=== PATIENT | female | born 1950 | race Caucasian/White ===

== ENCOUNTER → 2020-01-06 | Outpatient (CLI) | payer OTHER ==
[~2020-01-06] MED LIST: ALLO100 PO; ASPI325 PO; ATOR20 PO; CARV25 PO; DICL75ER PO; GLIP5 PO; IBU800 M1 PO; METF500C PO; MICROZIDE12.5 M1 PO; MULVITMIND PO; Percocet 5-3251 EACH PO; Vitamin D2000 UNIT PO
[2020-01-06 11:17] LABS: BASOPHILS ABSOLUTE AUTO 0.09 K/mm3 (0.00-0.23); BASOPHILS PERCENT AUTO 1 % (0-2); EOSINOPHILS ABSOLUTE AUTO 0.28 K/mm3 (0.00-0.68); EOSINOPHILS PERCENT AUTO 3 % (0-6); Hematocrit 41.7 % (33.0-51.0); Hemoglobin 12.8 g/dL (11.5-16.0); IMMATURE GRAN ABSOLUTE AUTO 0.04 K/mm3 (0.00-0.10); IMMATURE GRAN PERCENT AUTO 0 % (0-1); LYMPHOCYTES ABSOLUTE AUTO 1.36 K/mm3 (0.84-5.20); LYMPHOCYTES PERCENT AUTO 15 % (21-46); MONOCYTES ABSOLUTE AUTO 0.48 K/mm3 (0.16-1.47); MONOCYTES PERCENT AUTO 5 % (4-13); Mean Corpuscular HGB 26.4 pg (26.0-34.0); Mean Corpuscular HGB Conc 30.7 g/dL (31.5-36.5); Mean Corpuscular Volume 86 fL (80-100); Mean Platelet Volume 10.3 fL (9.1-12.4); NEUTROPHILS ABSOLUTE AUTO 6.94 K/mm3 (1.96-9.15); NEUTROPHILS PERCENT AUTO 76 % (41-73); Platelet Count 377 K/mm3 (150-400); RDW Coefficient Variation 14.8 % (11.7-14.2); RDW Standard Deviation 46.5 fL (35.1-46.3); Red Blood Cell Count 4.85 M/mm3 (3.80-5.20); White Blood Cell Count 9.19 K/mm3 (4.00-11.30)
[2020-01-06 11:28] LABS: Alanine Aminotransfer (ALT/SGP 14 U/L (12-78); Albumin, Blood 3.4 g/dL (3.4-5.0); Albumin/Globulin Ratio 0.7 (0.8-1.8); Alk Phos 177 U/L (50-136); Anion Gap 7 mmol/L (6-16); Aspartate Aminotrans (AST/SGOT 18 U/L (12-37); Bilirubin, Total 0.4 mg/dL (0.1-1.0); Blood Urea Nitrogen 16 mg/dL (8-24); Bun/Creatinine Ratio 27.7 (12.0-20.0); CO2, Blood 28 mmol/L (21-32); Calcium, Blood 8.9 mg/dL (8.5-10.1); Chloride, Blood 100 mmol/L (98-108); Creatinine, Blood 0.58 mg/dL (0.40-1.00); Globulin, Blood 5.2 g/dL (2.2-4.0); Glomerular Filtration Rate >60 (60-); Glucose, Blood 201 mg/dL (70-99); Potassium, Blood 3.5 mmol/L (3.5-5.5); Sodium, Blood 135 mmol/L (136-145); Total Protein, Blood 8.6 g/dL (6.4-8.2)
== END | disposition home or self-care (01) ==
LOC: LAB SHORT 11:03 → LAB 11:03
PROVIDERS: Physician Assistant
DX: R10.9 Unspecified abdominal pain (principal)
CPT/HCPCS: 80053; 83690; 85025

== ENCOUNTER 2020-01-08 17:48 | Emergency (ER) | payer OTHER ==
[~2020-01-08] VITALS: Ht 160 cm; Wt 117.9 kg
[~2020-01-08 17:48] MED LIST changes: -ALLO100 PO; -ATOR20 PO; -CARV25 PO; -DICL75ER PO; -GLIP5 PO; -IBU800 M1 PO; -METF500C PO; -MICROZIDE12.5 M1 PO; -Percocet 5-3251 EACH PO; -Vitamin D2000 UNIT PO
[2020-01-08] MEDS ORDERED: DICL75ER PO (18:09)
[2020-01-08] MEDS ORDERED: ALLO100 PO (18:10)
[2020-01-08] MEDS ORDERED: ATOR20 PO (18:10)
[2020-01-08] MEDS ORDERED: GLIP5 PO (18:10)
[2020-01-08] MEDS ORDERED: Vitamin D2000 UNIT PO (18:11)
[2020-01-08] MEDS ORDERED: CARV25 PO (18:11)
[2020-01-08] MEDS ORDERED: MICROZIDE12.5 M1 PO (18:12)
[2020-01-08] MEDS ORDERED: METF500C PO (18:12)
[2020-01-08 18:45] LABS: BASOPHILS ABSOLUTE AUTO 0.11 K/mm3 (0.00-0.23); BASOPHILS PERCENT AUTO 2 % (0-2); EOSINOPHILS ABSOLUTE AUTO 0.33 K/mm3 (0.00-0.68); EOSINOPHILS PERCENT AUTO 5 % (0-6); Hematocrit 41.8 % (33.0-51.0); Hemoglobin 12.9 g/dL (11.5-16.0); IMMATURE GRAN ABSOLUTE AUTO 0.02 K/mm3 (0.00-0.10); IMMATURE GRAN PERCENT AUTO 0 % (0-1); LYMPHOCYTES ABSOLUTE AUTO 1.64 K/mm3 (0.84-5.20); LYMPHOCYTES PERCENT AUTO 23 % (21-46); MONOCYTES PERCENT AUTO 6 % (4-13); Mean Corpuscular HGB 26.2 pg (26.0-34.0); Mean Corpuscular HGB Conc 30.9 g/dL (31.5-36.5); Mean Corpuscular Volume 85 fL (80-100); Mean Platelet Volume 9.8 fL (9.1-12.4); NEUTROPHILS ABSOLUTE AUTO 4.74 K/mm3 (1.96-9.15); NEUTROPHILS PERCENT AUTO 65 % (41-73); Platelet Count 417 K/mm3 (150-400); RDW Coefficient Variation 14.8 % (11.7-14.2); RDW Standard Deviation 45.6 fL (35.1-46.3); Red Blood Cell Count 4.93 M/mm3 (3.80-5.20); White Blood Cell Count 7.24 K/mm3 (4.00-11.30)
[2020-01-08 19:02] LABS: Alanine Aminotransfer (ALT/SGP 16 U/L (12-78); Albumin, Blood 3.4 g/dL (3.4-5.0); Albumin/Globulin Ratio 0.6 (0.8-1.8); Alk Phos 150 U/L (50-136); Anion Gap 7 mmol/L (6-16); Aspartate Aminotrans (AST/SGOT 22 U/L (12-37); Bilirubin, Total 0.3 mg/dL (0.1-1.0); Blood Urea Nitrogen 12 mg/dL (8-24); CO2, Blood 30 mmol/L (21-32); Calcium, Blood 9.2 mg/dL (8.5-10.1); Chloride, Blood 100 mmol/L (98-108); Creatinine, Blood 0.55 mg/dL (0.40-1.00); Globulin, Blood 5.4 g/dL (2.2-4.0); Glomerular Filtration Rate >60 (60-); Glucose, Blood 123 mg/dL (70-99); Potassium, Blood 3.4 mmol/L (3.5-5.5); Sodium, Blood 137 mmol/L (136-145); Total Protein, Blood 8.8 g/dL (6.4-8.2)
[2020-01-08 19:58] LABS: Source, Urine Clean Catch
[2020-01-08 20:07] LABS: Blood, Urine Neg (Neg); Glucose Qualitative, Urine Neg (Neg); Ketones, Urine Neg (Neg); Leukocyte Esterase, Urine Neg (Neg); Nitrite, Urine Neg (Neg); Protein, Urine Neg (Neg); Specific Gravity, Urine 1.015 (1.003-1.022); Urobilinogen, Urine NORM (Normal)
[2020-01-08 20:11] LABS: Bilirubin, Urine 1+ (Neg); Color, Urine Yellow (P-Yellow)
[2020-01-08 20:13] LABS: Amorphous Light (0-Heavy); Appearance, Urine Hazy (Clear); Bacteria Few /hpf; Red Blood Cells, Urine Not Seen /hpf (0-2); Squamous Epithelial Cells Many /hpf (Few); White Blood Cells, Urine Rare /hpf (0-5)
[2020-01-08] MEDS ORDERED: Percocet 5-3251 EACH PO (20:56)
[2020-01-08] MEDS ORDERED: IBU800 M1 PO (20:56)
== END 2020-01-08 21:07 | disposition home or self-care (01) ==
LOC: ER 17:48
PROVIDERS: Emergency Medicine
DX: R07.89 Other chest pain (principal); I10 Essential (primary) hypertension; Z88.1 Allergy status to other antibiotic agents; Z79.84 Long term (current) use of oral hypoglycemic drugs; Z79.899 Other long term (current) drug therapy
CPT/HCPCS: 36415; 71046; 80053; 81001; 83690; 85025; 93005; 93010; 96374; 96375; 99284-25; J1170; J1885; J2405

== ENCOUNTER 2020-01-22 08:07 | Day surgery (SDC) | payer OTHER ==
[~2020-01-22 08:07] MED LIST changes: +ALLO100 PO; +ATOR20 PO; +CARV25 PO; +DICL75ER PO; +GLIP5 PO; +IBU800 M1 PO; +METF500C PO; +MICROZIDE12.5 M1 PO; +Percocet 5-3251 EACH PO; +Vitamin D2000 UNIT PO
== END 2020-01-22 23:17 | disposition home or self-care (01) ==
LOC: MOI US 08:07
DX: C50.912 Malignant neoplasm of unspecified site of left female breast (principal); C77.3 Secondary and unspecified malignant neoplasm of axilla and upper limb lymph nodes; Z17.0 Estrogen receptor positive status [ER+]
CPT/HCPCS: 19083; 38505; 76942

== ENCOUNTER 2020-10-12 09:32 | Day surgery (SDC) | payer OTHER ==
[~2020-10-12] VITALS: Ht 160 cm; Wt 117.8 kg
[~2020-10-12 09:32] MED LIST changes: +ALBU90OI INH; +Abraxane100 MG IV; +CENTRUM SILVER1 EAC2 PO; +LOVAZA PO; +ONDA8 PO; +OXYC15ER PO; +PARO10 PO; +POTA10T PO
--- NOTE | 2020-10-12 10:21 | NUR ---
History, Chart, Medications and Allergies reviewed before start of procedure.Patient confirms NPO status and agrees with scheduled surgery. Pre-Op teaching done. Pt verbalizes understanding. Lungs clear T/O to Auscultation.
--- NOTE | 2020-10-12 11:01 | NUR ---
GLASSES AND WATCHED PLACED IN PACU WITH PT LABEL
--- NOTE | 2020-10-12 14:22 | NUR ---
History, Chart, Medications and Allergies reviewed before start of procedure.Lungs clear T/O to Auscultation. Patient confirms NPO status and agrees with scheduled surgery. Pre-Op teaching done. Pt verbalizes understanding.
--- NOTE | 2020-10-12 15:00 | NUR ---
Patient up to Ambulate independently. Gait steady. Discharge instructions reviewed with patient. Patient verbalizes understanding. Copy given to patient to take home. Patient States Post-Procedure ride home has been arranged. Discharged via wheelchair to private car for ride home. Dressing to procedure site clean, dry, intact with no visible drainage, swelling, erythema or bruising noted. ALL BELONINGS RETURNED TO PATIENT.
== END 2020-10-12 15:00 | disposition home or self-care (01) ==
LOC: ORSCMMR 09:32 → ORD 11:30 → ORSCMMR 11:30
PROVIDERS: Surgery
PROC: 0JH60WZ Insertion of Totally Implantable Vascular Access Device into Chest Subcutaneous Tissue and Fascia, Open Approach (ICD-10-PCS; principal; 2020-10-12 11:30)
DX: C50.912 Malignant neoplasm of unspecified site of left female breast (principal); I10 Essential (primary) hypertension; E78.5 Hyperlipidemia, unspecified; E11.9 Type 2 diabetes mellitus without complications; Z79.84 Long term (current) use of oral hypoglycemic drugs; Z79.899 Other long term (current) drug therapy
CPT/HCPCS: 77001; 82947; C1788; J0171; J0690; J1100; J1642; J2250; J2370; J2405; J2704; J3010; J7120

== ENCOUNTER → 2020-11-03 | Outpatient (CLI) | payer OTHER ==
[2020-11-03 09:32] LABS: BASOPHILS ABSOLUTE AUTO 0.08 K/mm3 (0.00-0.23); BASOPHILS PERCENT AUTO 1 % (0-2); EOSINOPHILS ABSOLUTE AUTO 0.34 K/mm3 (0.00-0.68); EOSINOPHILS PERCENT AUTO 6 % (0-6); Hematocrit 35.1 % (33.0-51.0); Hemoglobin 11.1 g/dL (11.5-16.0); IMMATURE GRAN ABSOLUTE AUTO 0.06 K/mm3 (0.00-0.10); IMMATURE GRAN PERCENT AUTO 1 % (0-1); LYMPHOCYTES ABSOLUTE AUTO 0.47 K/mm3 (0.84-5.20); LYMPHOCYTES PERCENT AUTO 8 % (21-46); MONOCYTES ABSOLUTE AUTO 0.63 K/mm3 (0.16-1.47); MONOCYTES PERCENT AUTO 11 % (4-13); Mean Corpuscular HGB 29.5 pg (26.0-34.0); Mean Corpuscular HGB Conc 31.6 g/dL (31.5-36.5); Mean Corpuscular Volume 93 fL (80-100); Mean Platelet Volume 9.6 fL (9.1-12.4); NEUTROPHILS ABSOLUTE AUTO 4.17 K/mm3 (1.96-9.15); NEUTROPHILS PERCENT AUTO 73 % (41-73); NRBC ABSOLUTE 0.02 K/mm3 (0.00-0.02); NRBC Auto 0.3 /100 WBC (0.0-0.2); Platelet Count 371 K/mm3 (150-400); RDW Coefficient Variation 17.1 % (11.7-14.2); RDW Standard Deviation 57.5 fL (35.1-46.3); Red Blood Cell Count 3.76 M/mm3 (3.80-5.20); White Blood Cell Count 5.75 K/mm3 (4.00-11.30)
[2020-11-03 09:46] LABS: Alanine Aminotransfer (ALT/SGP 24 U/L (12-78); Albumin, Blood 3.2 g/dL (3.4-5.0); Albumin/Globulin Ratio 0.7 (0.8-1.8); Alk Phos 126 U/L (50-136); Anion Gap 6 mmol/L (6-16); Aspartate Aminotrans (AST/SGOT 22 U/L (12-37); Bilirubin, Total 0.4 mg/dL (0.1-1.0); Blood Urea Nitrogen 12 mg/dL (8-24); Bun/Creatinine Ratio 21.2 (12.0-20.0); CO2, Blood 26 mmol/L (21-32); Calcium, Blood 8.5 mg/dL (8.5-10.1); Chloride, Blood 108 mmol/L (98-108); Creatinine, Blood 0.57 mg/dL (0.40-1.00); Globulin, Blood 4.6 g/dL (2.2-4.0); Glomerular Filtration Rate >60 (60-); Glucose, Blood 156 mg/dL (70-99); Potassium, Blood 3.9 mmol/L (3.5-5.5); Sodium, Blood 140 mmol/L (136-145); Total Protein, Blood 7.8 g/dL (6.4-8.2)
== END | disposition home or self-care (01) ==
LOC: LAB SHORT 08:58 → LAB 08:58
PROVIDERS: Internal Medicine Hematology & Oncology
DX: C50.919 Malignant neoplasm of unspecified site of unspecified female breast (principal)
CPT/HCPCS: 80053; 85025

== ENCOUNTER 2021-11-08 09:13 | Inpatient (IN) | payer OTHER ==
[~2021-11-08] VITALS: Ht 160 cm; Wt 99.3 kg
[~2021-11-08 09:13] MED LIST changes: -CARV25 PO; +Carvedilol12.5 MG PO
[2021-11-08 10:34] LABS: Hematocrit 36.2 % (33.0-51.0); Hemoglobin 11.4 g/dL (11.5-16.0); Mean Corpuscular HGB 28.6 pg (26.0-34.0); Mean Corpuscular HGB Conc 31.5 g/dL (31.5-36.5); Mean Corpuscular Volume 91 fL (80-100); Mean Platelet Volume 10.1 fL (9.1-12.4); Platelet Count 207 K/mm3 (150-400); RDW Coefficient Variation 18.1 % (11.7-14.2); RDW Standard Deviation 60.7 fL (35.1-46.3); Red Blood Cell Count 3.99 M/mm3 (3.80-5.20)
[2021-11-08 10:38] LABS: BASOPHILS ABSOLUTE AUTO 0.02 K/mm3 (0.00-0.23); BASOPHILS PERCENT AUTO 5 % (0-2); EOSINOPHILS ABSOLUTE AUTO 0.12 K/mm3 (0.00-0.68); EOSINOPHILS PERCENT AUTO 31 % (0-6); IMMATURE GRAN PERCENT AUTO 0 % (0-1); LYMPHOCYTES ABSOLUTE AUTO 0.15 K/mm3 (0.84-5.20); LYMPHOCYTES PERCENT AUTO 39 % (21-46); MONOCYTES ABSOLUTE AUTO 0.04 K/mm3 (0.16-1.47); MONOCYTES PERCENT AUTO 10 % (4-13); NEUTROPHILS ABSOLUTE AUTO 0.06 K/mm3 (1.96-9.15); NEUTROPHILS PERCENT AUTO 15 % (41-73)
[2021-11-08 10:39] LABS: White Blood Cell Count 0.39 K/mm3 (4.00-11.30)
[2021-11-08 10:53] LABS: Albumin, Blood 3.1 g/dL (3.4-5.0); Albumin/Globulin Ratio 0.6 (0.8-1.8); Bilirubin, Total 0.8 mg/dL (0.1-1.0); Bun/Creatinine Ratio 25.2 (12.0-20.0); Calcium, Blood 8.8 mg/dL (8.5-10.1); Creatinine, Blood 1.03 mg/dL (0.40-1.00); Globulin, Blood 4.9 g/dL (2.2-4.0); Potassium, Blood 3.1 mmol/L (3.5-5.5)
[2021-11-08 11:06] LABS: BASOPHILS ABSOLUTE MAN 0.01 K/mm3 (0.00-0.23); BASOPHILS PERCENT MAN 4 % (0-2); EOSINOPHILS ABSOLUTE MAN 0.17 K/mm3 (0.00-0.68); EOSINOPHILS PERCENT MAN 44 % (0-6); LYMPHOCYTES ABSOLUTE MAN 0.14 K/mm3 (0.84-5.20); LYMPHOCYTES PERCENT MAN 36 % (21-46); MONOCYTES ABSOLUTE MAN 0.04 K/mm3 (0.16-1.47); MONOCYTES PERCENT MAN 12 % (4-13); NEUTROPHILS ABSOLUTE MAN 0.01 K/mm3 (1.96-9.15); SEG NEUTROPHILS PERCENT MAN 4 % (41-73); TOTAL CELLS COUNTED 25
[2021-11-08 13:21] LABS: Source, Urine Clean Catch
[2021-11-08 13:24] LABS: Appearance, Urine Clear (Clear); Bilirubin, Urine Neg (Neg); Blood, Urine 4+ (Neg); Color, Urine Yellow (P-Yellow); Glucose Qualitative, Urine Neg (Neg); Ketones, Urine Neg (Neg); Leukocyte Esterase, Urine 1+ (Neg); Nitrite, Urine Pos (Neg); Protein, Urine 2+ (Neg); Specific Gravity, Urine 1.015 (1.003-1.022); Urobilinogen, Urine NORM (Normal)
[2021-11-08 13:50] LABS: Bacteria Many /hpf; Red Blood Cells, Urine TNTC /hpf (0-2); Squamous Epithelial Cells Mod /hpf (Few)
[2021-11-08 13:51] LABS: Transitional Epithelial Cells Few /hpf (0-Rare)
[2021-11-08] MEDS ORDERED: HYDROCODONE-AC1 EAC7 PO (17:45)
[2021-11-08] MEDS ORDERED: IXEMPRA IV (17:46)
[2021-11-08] MEDS ORDERED: METO10 PO (17:48)
[2021-11-08] MEDS ORDERED: DYAZIDE 37.5-21 EACH PO (17:49)
[2021-11-08] MEDS ORDERED: Amlodipine Bes2.5 MG PO (18:19)
--- NOTE | 2021-11-08 19:37 | NUR ---
END OF SHIFT SUMMARY: PATIENT REPORTED DISCOMFORT RELATED TO NAUSEA AND CHEMOTHERAPY. MEDICATED PER PRNS AND ALLOWED PATIENT UNINTERRUPTED REST. PATIENT WAS ABLE TO SLEEP IN BETWEEN VISITS FROM STAFF. PATIENT ABLE TO TOLERATE CLEAR LIQUIDS WITHOUT INCREASED NAUSEA OR DISCOMFORT. PATIENT'S CHILDREN IN THE ROOM WITH THE PATIENT. THEY ARE SUPPORTIVE, ATTENTIVE AND KNOWLEDGEABLE OF THEIR MOTHER'S MEDICAL CONDITION. THEY REPORT THAT THE PATIENT HAS NOT BEEN TAKING HER MEDICATIONS AN OUTPATIENT. THE PATIENT REPORTED TO HER CHILDREN THAT SHE DID NOT WANT TO GO THROUGH THE NEW CHEMO AGAIN.
--- NOTE | 2021-11-09 01:43 | NUR ---
FELLER SEAM OPERATOR SUMMARY PATIENT HAD A FAIR SHIFT. HER V/S WERE STABLE, BUT THE HR WAS ELEVATED SHE WAS RESTLESS AND COULD NOT GET COMFORTABLE. SHE WAS KEPT COMFORTABLE AND WAS REPOSITINED, AND ADMINISTERED SOME PAIN MEDICATION TO SEE IF THAT WILL HELP. SHE GOT SOME SLEEP AT THAT POINT. SHE GOT HER SCHEDULED MEDS, AND I TOOK A PICTURE OF HER BUTTOCKS SHE HAS SOME EXCORIATIONS. THAT WOUND CARE NEED TO REVIEW. [facility].
[2021-11-09 04:24] LABS: Hematocrit 29.9 % (33.0-51.0); Hemoglobin 9.3 g/dL (11.5-16.0); Mean Corpuscular HGB 28.8 pg (26.0-34.0); Mean Corpuscular HGB Conc 31.1 g/dL (31.5-36.5); Mean Corpuscular Volume 93 fL (80-100); Mean Platelet Volume 10.9 fL (9.1-12.4); Platelet Count 148 K/mm3 (150-400); RDW Coefficient Variation 18.1 % (11.7-14.2); RDW Standard Deviation 61.9 fL (35.1-46.3); Red Blood Cell Count 3.23 M/mm3 (3.80-5.20)
[2021-11-09 04:29] LABS: BASOPHILS ABSOLUTE AUTO 0.01 K/mm3 (0.00-0.23); BASOPHILS PERCENT AUTO 3 % (0-2); EOSINOPHILS ABSOLUTE AUTO 0.04 K/mm3 (0.00-0.68); EOSINOPHILS PERCENT AUTO 13 % (0-6); IMMATURE GRAN ABSOLUTE AUTO 0.02 K/mm3 (0.00-0.10); IMMATURE GRAN PERCENT AUTO 7 % (0-1); LYMPHOCYTES ABSOLUTE AUTO 0.13 K/mm3 (0.84-5.20); LYMPHOCYTES PERCENT AUTO 43 % (21-46); MONOCYTES ABSOLUTE AUTO 0.06 K/mm3 (0.16-1.47); MONOCYTES PERCENT AUTO 20 % (4-13); NEUTROPHILS ABSOLUTE AUTO 0.04 K/mm3 (1.96-9.15); NEUTROPHILS PERCENT AUTO 13 % (41-73)
[2021-11-09 04:40] LABS: Albumin, Blood 2.4 g/dL (3.4-5.0); Anion Gap 8 mmol/L (6-16); Blood Urea Nitrogen 17 mg/dL (8-24); Bun/Creatinine Ratio 23.1 (12.0-20.0); CO2, Blood 25 mmol/L (21-32); Calcium, Blood 7.7 mg/dL (8.5-10.1); Chloride, Blood 105 mmol/L (98-108); Creatinine, Blood 0.74 mg/dL (0.40-1.00); Glomerular Filtration Rate >60 (60-); Glucose, Blood 248 mg/dL (70-99); Magnesium, Blood 1.9 mg/dL (1.6-2.4); Phosphorus, Blood 1.7 mg/dL (2.5-4.9); Potassium, Blood 2.8 mmol/L (3.5-5.5); Sodium, Blood 138 mmol/L (136-145)
--- NOTE | 2021-11-09 10:56 | NUR ---
Supportive visit this AM. Pt resting in bed, denies pain but does report discomfort. She states "I just can't get comfortable". Assisted Pt to chair per her request. Offered therapeutic listening as Pt expresses concerns and fears. Pt reports not wanting to continue with experiencing severe side effects such as she is now. She states she is hoping there are other options for treatment. Continued therapeutic listening as Pt expresses fear of not being ready to . Offered emotional support and continued listening. Pt expresses appreciation and reports no other concerns at this time. Pt's primary RN in to offer AM medications. Called Dr Teran's office per Pt's request and spoke with Michelle. Relayed Pt's concerns. Michelle reports family called and reported Pt did not want to pursue any further treatment. If Pt has changed her mind they will address concerns when Pt is D/C from hospital. Plan: Will F/U when family is visiting.
--- NOTE | 2021-11-09 14:36 | NUR ---
Met with Pt's son Keanu out in [place]. Offered therapeutic listening as Keanu reports Pt does wax and volodymyr of goals. He states she can be stubborn at times. He reports when she receives treatment and starts to feel ill she doesn't do what's recommended including hydration and nutrition. He reports he and family have had conversations about planning for the future including the need for caregiver assistance. Keanu reports oncologist told her that treatment would not cure her cancer but she holds on to hope. Suggested that family have routine conversations with her regarding goals of care including considering quality of life and hospice. Continued therapeutic listening. Keanu expresses appreciation and reports no other concerns at this time. Palliative Care will remain available.
--- NOTE | 2021-11-09 18:44 | NUR ---
PATIENT AND SONS MET WITH PALLIATIVE CARE THIS AM. THE SON'S WERE ASKING IF HOPSICE SERVICES WOULD BE AT HOME OR IN A PLACE. PATIENT ASKED THIS WELDER SETTER ELECTRON BEAM MACHINE 'I'M GOING TO HERE AREN'T I"?. SHE HAS BEEN STRUGGELING WITH NAUSEA, AND PAIN. ZOFRAN, PHENEGREN WERE BOTH USED FOR NAUSEA THROUGH THE DAY. AT THIS TIME, SHE IS TIRED, AND JUST WANTS TO SLEEP. THE PHENEGREN INCREASED HER DROWSINESS ALLOWING HER TO REST. ONE UNIT OF INSULIN WAS HELD AT DINNER TIME, DUE TO THE PATIENTS INABILITY TO EAT. BS WAS 172. THE PATIENTS SONS WERE ASKING IF A SCAN OF THE BRAIN COULD BE DONE, SO THEY COULD SEE IF THE CANCER HAD SPREAD TO THE BRAIN. LS HAVE CRACKLES AND BREATHING IS SHALLOW. SHE RECIEVED A IV BAG OF POTASSIUM PHOSPHATE THIS SHIFT.
--- NOTE | 2021-11-10 01:18 | NUR ---
TABLE GAMES SHIFT MANAGER SUMMARY PATIENT HAD FAIFR SHIFT. SHE IS ALERT AND ORIENTED. SHE DID GET HER PAIN MED NEEDED. VITALS CHECKED AND RECORDED. SHE STILL A LITTLE RESTLESS, NO OTHER COMPLAINTS LODGED. WILL CONTINUE TO MONITOR.
[2021-11-10 05:31] LABS: Hematocrit 28.7 % (33.0-51.0); Hemoglobin 8.8 g/dL (11.5-16.0); Mean Corpuscular HGB 28.3 pg (26.0-34.0); Mean Corpuscular HGB Conc 30.7 g/dL (31.5-36.5); Mean Corpuscular Volume 92 fL (80-100); Mean Platelet Volume 11.9 fL (9.1-12.4); Platelet Count 147 K/mm3 (150-400); RDW Coefficient Variation 18.1 % (11.7-14.2); RDW Standard Deviation 61.7 fL (35.1-46.3); Red Blood Cell Count 3.11 M/mm3 (3.80-5.20)
[2021-11-10 06:02] LABS: White Blood Cell Count 0.41 K/mm3 (4.00-11.30)
[2021-11-10 06:16] LABS: Albumin, Blood 2.2 g/dL (3.4-5.0); Anion Gap 6 mmol/L (6-16); Blood Urea Nitrogen 12 mg/dL (8-24); Bun/Creatinine Ratio 17.3 (12.0-20.0); CO2, Blood 25 mmol/L (21-32); Calcium, Blood 7.7 mg/dL (8.5-10.1); Chloride, Blood 107 mmol/L (98-108); Creatinine, Blood 0.69 mg/dL (0.40-1.00); Glomerular Filtration Rate >60 (60-); Glucose, Blood 209 mg/dL (70-99); Phosphorus, Blood 1.4 mg/dL (2.5-4.9); Sodium, Blood 138 mmol/L (136-145)
--- NOTE | 2021-11-10 13:09 | NUR ---
Supportive visit this afternoon. Pt resting in bed with her eyes closed. Pt appears comfortable with no S/S of distress at this time. Pt remains with her eyes closed as this RN spoke with Pt's son Damon who is at bedside. Therapeutic listening and questions answered. Discussed the potential of Pt needing caregiver assistance as disease process takes its' coarse. Damon expresses appreciation and reports no other concerns at this time. Spoke with Dr Holland, Primary RN Kirstie and discussed case. Palliative Care will remain available.
--- NOTE | 2021-11-10 18:39 | NUR ---
SHIFT SUMMARY; PATIENT TURNED DOWN ALL MEALS. EXPRESSED THAT SHE WASN'T HUNGRY. HER SON IS AT BEDSIDE DURING DAY AND THEY MEET WITH PALLIATIVE CARE YAMEL RN DURING DAY. WAS CONSULTED AND HE DID SPEAK WITH . PER PALLIATIVE CARE FAMILY AND PATIENT ARE CONSIDERING HOSPICE. PATIENT IS UNABLE TO GET COMFORTABLE TODAY. SHE WAS GIVEN NORCO X 1 AND MORPHINE 4MG IV X 1 WITHOUT SUCCESS IN MANAGING HER PAIN/UNCOMFORTABLENESS. PATIENT IS AO X 4. SHE USES CALL LIGHT APPROPRIATELY. HER VITAL SIGNS ARE WNL. CHEM BG REQUIRE MINIMAL COVERAGE. SHE DOES COMPLAIN OF SWALLOWING PILLS AND SAYS SHE IS TIRED OF IT. WILL REMAIN AVAILABLE FOR THIS PAITENT AND HER FAMILY FOR ANY WANTS OR NEEDS UNTIL REPORT AND HAND OFF TO NOC SHIFT RN.
--- NOTE | 2021-11-11 01:41 | NUR ---
PRIVATE EQUITY ASSOCIATE SUMMARY PATIENT HAD A FAIR SHIFT. SHE IS ALERT AND ORIENTED. SHE IS STILL UNCOMFORTABLE AND RESTLESS. HAD HER PAIN MED AND NAUSEA MEDICATION MEDICATION. V/S STABLE AND NO OTHER COMPLAINTS LODGED. WILL CONTINUE TO MONITOR HER.
[2021-11-11 06:16] LABS: Anion Gap 7 mmol/L (6-16); Blood Urea Nitrogen 11 mg/dL (8-24); Bun/Creatinine Ratio 17.5 (12.0-20.0); CO2, Blood 25 mmol/L (21-32); Calcium, Blood 7.7 mg/dL (8.5-10.1); Chloride, Blood 106 mmol/L (98-108); Creatinine, Blood 0.63 mg/dL (0.40-1.00); Glomerular Filtration Rate >60 (60-); Glucose, Blood 172 mg/dL (70-99); Magnesium, Blood 1.7 mg/dL (1.6-2.4); Phosphorus, Blood 1.4 mg/dL (2.5-4.9); Potassium, Blood 2.9 mmol/L (3.5-5.5); Sodium, Blood 138 mmol/L (136-145)
[2021-11-11 09:43] LABS: Hematocrit 28.6 % (33.0-51.0); Hemoglobin 8.7 g/dL (11.5-16.0); Mean Corpuscular HGB 28.3 pg (26.0-34.0); Mean Corpuscular HGB Conc 30.4 g/dL (31.5-36.5); Mean Corpuscular Volume 93 fL (80-100); Mean Platelet Volume 11.4 fL (9.1-12.4); NRBC ABSOLUTE 0.04 K/mm3 (0.00-0.02); NRBC Auto 2.4 /100 WBC (0.0-0.2); Platelet Count 152 K/mm3 (150-400); RDW Coefficient Variation 18.3 % (11.7-14.2); RDW Standard Deviation 62.4 fL (35.1-46.3); Red Blood Cell Count 3.07 M/mm3 (3.80-5.20); White Blood Cell Count 1.67 K/mm3 (4.00-11.30)
[2021-11-11 10:25] LABS: BAND PERCENT MAN 18 % (0-8); BASOPHILS ABSOLUTE MAN 0.01 K/mm3 (0.00-0.23); BASOPHILS PERCENT MAN 1 % (0-2); EOSINOPHILS PERCENT MAN 12 % (0-6); LYMPHOCYTES ABSOLUTE MAN 0.43 K/mm3 (0.84-5.20); LYMPHOCYTES PERCENT MAN 26 % (21-46); MONOCYTES ABSOLUTE MAN 0.16 K/mm3 (0.16-1.47); MONOCYTES PERCENT MAN 10 % (4-13); MYELOCYTE ABSOLUTE MAN 0.06 K/mm3 (0.00-0.00); MYELOCYTE PERCENT MAN 4 % (0-0); NEUTROPHILS ABSOLUTE MAN 0.78 K/mm3 (1.96-9.15); SEG NEUTROPHILS PERCENT MAN 29 % (41-73); TOTAL CELLS COUNTED 100
--- NOTE | 2021-11-12 05:50 | NUR ---
Patient is alert and oriented x4, bed rest. Very weak. Complains of generalized pain, PRN pain medication given. Patient is turned q2 to prevent bed sores. Pain managed with PO pill and IV. Patient is pleasant and follows commands. Able to let needs known. No problem swallowing. Call light within reach.
[2021-11-12 05:56] LABS: Hematocrit 28.9 % (33.0-51.0); Hemoglobin 8.8 g/dL (11.5-16.0); Mean Corpuscular HGB 28.4 pg (26.0-34.0); Mean Corpuscular HGB Conc 30.4 g/dL (31.5-36.5); Mean Corpuscular Volume 93 fL (80-100); Mean Platelet Volume 11.2 fL (9.1-12.4); NRBC Auto 3.8 /100 WBC (0.0-0.2); Platelet Count 185 K/mm3 (150-400); RDW Coefficient Variation 18.5 % (11.7-14.2); RDW Standard Deviation 62.6 fL (35.1-46.3); White Blood Cell Count 5.29 K/mm3 (4.00-11.30)
[2021-11-12 06:13] LABS: Anion Gap 7 mmol/L (6-16); Blood Urea Nitrogen 10 mg/dL (8-24); Bun/Creatinine Ratio 17.3 (12.0-20.0); CO2, Blood 27 mmol/L (21-32); Calcium, Blood 7.6 mg/dL (8.5-10.1); Chloride, Blood 105 mmol/L (98-108); Creatinine, Blood 0.58 mg/dL (0.40-1.00); Glomerular Filtration Rate >60 (60-); Glucose, Blood 167 mg/dL (70-99); Magnesium, Blood 1.5 mg/dL (1.6-2.4); Phosphorus, Blood 1.6 mg/dL (2.5-4.9); Sodium, Blood 139 mmol/L (136-145)
[2021-11-12 06:24] LABS: BAND PERCENT MAN 23 % (0-8); BASOPHILS ABSOLUTE MAN 0.05 K/mm3 (0.00-0.23); BASOPHILS PERCENT MAN 1 % (0-2); EOSINOPHILS ABSOLUTE MAN 0.05 K/mm3 (0.00-0.68); EOSINOPHILS PERCENT MAN 1 % (0-6); LYMPHOCYTES ABSOLUTE MAN 0.52 K/mm3 (0.84-5.20); LYMPHOCYTES PERCENT MAN 10 % (21-46); MONOCYTES ABSOLUTE MAN 0.15 K/mm3 (0.16-1.47); MONOCYTES PERCENT MAN 3 % (4-13); MYELOCYTE ABSOLUTE MAN 0.26 K/mm3 (0.00-0.00); MYELOCYTE PERCENT MAN 5 % (0-0); NEUTROPHILS ABSOLUTE MAN 4.23 K/mm3 (1.96-9.15); SEG NEUTROPHILS PERCENT MAN 57 % (41-73); TOTAL CELLS COUNTED 100
[2021-11-13 05:51] LABS: Hematocrit 32.6 % (33.0-51.0); Hemoglobin 10.1 g/dL (11.5-16.0); Mean Corpuscular HGB 28.7 pg (26.0-34.0); Mean Corpuscular Volume 93 fL (80-100); Mean Platelet Volume 11.1 fL (9.1-12.4); NRBC ABSOLUTE 0.18 K/mm3 (0.00-0.02); NRBC Auto 2.3 /100 WBC (0.0-0.2); Platelet Count 209 K/mm3 (150-400); RDW Coefficient Variation 18.7 % (11.7-14.2); RDW Standard Deviation 63.3 fL (35.1-46.3); Red Blood Cell Count 3.52 M/mm3 (3.80-5.20); White Blood Cell Count 7.77 K/mm3 (4.00-11.30)
[2021-11-13 06:10] LABS: Anion Gap 5 mmol/L (6-16); Blood Urea Nitrogen 8 mg/dL (8-24); Bun/Creatinine Ratio 14.8 (12.0-20.0); CO2, Blood 27 mmol/L (21-32); Calcium, Blood 7.8 mg/dL (8.5-10.1); Chloride, Blood 108 mmol/L (98-108); Creatinine, Blood 0.54 mg/dL (0.40-1.00); Glomerular Filtration Rate >60 (60-); Glucose, Blood 169 mg/dL (70-99); Magnesium, Blood 1.9 mg/dL (1.6-2.4); Phosphorus, Blood 1.9 mg/dL (2.5-4.9); Sodium, Blood 140 mmol/L (136-145)
--- NOTE | 2021-11-13 06:11 | NUR ---
Patient is alert and oriented x4. Bed rest. Incontinent in bowel and urine. Complains of stomach pain, PRN pain medication given. Poor appetite, encouraged fluids. Pending CDIFF results. Patient had a few bowel movement, mucous like and soft. Q2 turns completed. Patient able to let needs be known. Call light within reach.
[2021-11-13 06:57] LABS: BAND PERCENT MAN 15 % (0-8); BASOPHILS ABSOLUTE MAN 0.07 K/mm3 (0.00-0.23); BASOPHILS PERCENT MAN 1 % (0-2); EOSINOPHILS PERCENT MAN 0 % (0-6); LYMPHOCYTES % ATYPICAL MANUAL 1 % (0-0); LYMPHOCYTES ABSOLUTE MAN 0.62 K/mm3 (0.84-5.20); LYMPHOCYTES PERCENT MAN 7 % (21-46); METAMYELOCYTE ABSOLUTE MAN 0.93 K/mm3 (0.00-0.00); METAMYELOCYTE PERCENT MAN 12 % (0-0); MONOCYTES ABSOLUTE MAN 0.15 K/mm3 (0.16-1.47); MONOCYTES PERCENT MAN 2 % (4-13); MYELOCYTE ABSOLUTE MAN 0.77 K/mm3 (0.00-0.00); MYELOCYTE PERCENT MAN 10 % (0-0); NEUTROPHILS ABSOLUTE MAN 5.05 K/mm3 (1.96-9.15); PROMYELOCYTE ABSOLUTE MAN 0.15 K/mm3 (0.00-0.00); PROMYELOCYTE PERCENT MAN 2 % (0-0); SEG NEUTROPHILS PERCENT MAN 50 % (41-73); TOTAL CELLS COUNTED 100
[2021-11-13 07:50] LABS: C DIFFICILE DNA NEGATIVE (Negative)
--- NOTE | 2021-11-14 04:32 | NUR ---
Patient is alert and oriented x4. Generalized weakness. Bowel movement is still soft, but not as loose as it was the other day. Complains of generalized pain 7/10 PRN pain medication given. Encouraged increased food intake. Patient is able to turn with assist. All needs are met. Call light within reach.
[2021-11-14 06:42] LABS: Albumin, Blood 2.1 g/dL (3.4-5.0); Anion Gap 7 mmol/L (6-16); Blood Urea Nitrogen 8 mg/dL (8-24); Bun/Creatinine Ratio 15.2 (12.0-20.0); CO2, Blood 27 mmol/L (21-32); Calcium, Blood 7.9 mg/dL (8.5-10.1); Chloride, Blood 106 mmol/L (98-108); Creatinine, Blood 0.53 mg/dL (0.40-1.00); Glomerular Filtration Rate >60 (60-); Glucose, Blood 161 mg/dL (70-99); Phosphorus, Blood 2.3 mg/dL (2.5-4.9); Potassium, Blood 3.7 mmol/L (3.5-5.5); Sodium, Blood 140 mmol/L (136-145)
[2021-11-14] MEDS ORDERED: AMOCLA875 PO (10:24)
[2021-11-14] MEDS ORDERED: VISBIOME 112.51 EACH PO (10:24)
== END 2021-11-14 15:11 | disposition home health service (06) | DRG 871 ==
LOC: ER 09:13 → MEDS 16:25
PROVIDERS: Internal Medicine; Physician Assistant; ADMIT Internal Medicine
DX: A41.59 Other Gram-negative sepsis (principal); D61.810 Antineoplastic chemotherapy induced pancytopenia; N39.0 Urinary tract infection, site not specified; N17.9 Acute kidney failure, unspecified; Z66 Do not resuscitate; D61.818 Other pancytopenia; E44.1 Mild protein-calorie malnutrition; C78.02 Secondary malignant neoplasm of left lung; C78.01 Secondary malignant neoplasm of right lung; R65.20 Severe sepsis without septic shock; E87.6 Hypokalemia; E83.39 Other disorders of phosphorus metabolism; E83.42 Hypomagnesemia; D70.9 Neutropenia, unspecified; R50.81 Fever presenting with conditions classified elsewhere; E86.0 Dehydration; T45.1X5A Adverse effect of antineoplastic and immunosuppressive drugs, initial encounter; Z68.38 Body mass index [BMI] 38.0-38.9, adult; K52.9 Noninfective gastroenteritis and colitis, unspecified; B96.1 Klebsiella pneumoniae [K. pneumoniae] as the cause of diseases classified elsewhere; C50.919 Malignant neoplasm of unspecified site of unspecified female breast; E11.9 Type 2 diabetes mellitus without complications; M10.9 Gout, unspecified; M19.90 Unspecified osteoarthritis, unspecified site; E78.5 Hyperlipidemia, unspecified; I10 Essential (primary) hypertension; Z88.1 Allergy status to other antibiotic agents; Z92.21 Personal history of antineoplastic chemotherapy; Z92.3 Personal history of irradiation; Z79.899 Other long term (current) drug therapy; Z79.84 Long term (current) use of oral hypoglycemic drugs; Z90.49 Acquired absence of other specified parts of digestive tract; Z98.890 Other specified postprocedural states; Z87.891 Personal history of nicotine dependence
CPT/HCPCS: 36415; 51701; 71045; 74177; 80048; 80053; 80069; 81001; 82947; 83605; 83690; 83735; 84100; 85025; 85027; 85520; 87040; 87077; 87086; 87186; 87493; 94640; 94760; 96361; 96365; 96366; 96368; 96375; 96376; 97162; 97166; 97530; 97535; 99285-25; A9270; J1644; J2270; J2405; J2543; J2550; J3010; J3475; J3480; J7030; J7050; J7060; J7120; Q9967

== ENCOUNTER → 2021-11-27 | Outpatient (CLI) | payer OTHER ==
[~2021-11-27] MED LIST changes: +AMOCLA875 PO; +Amlodipine Bes2.5 MG PO; +DYAZIDE 37.5-21 EACH PO; +HYDROCODONE-AC1 EAC7 PO; +IXEMPRA IV; +METO10 PO; +VISBIOME 112.51 EACH PO
[2021-11-27 09:09] LABS: Source, Urine Voided
[2021-11-27 10:31] LABS: Appearance, Urine Cloudy (Clear); Bilirubin, Urine Neg (Neg); Blood, Urine 2+ (Neg); Color, Urine Yellow (P-Yellow); Glucose Qualitative, Urine Neg (Neg); Ketones, Urine Neg (Neg); Leukocyte Esterase, Urine 3+ (Neg); Nitrite, Urine Pos (Neg); Protein, Urine 1+ (Neg); Urobilinogen, Urine NORM (Normal); pH, Urine 6.5 (5.0-8.0)
[2021-11-27 10:41] LABS: White Blood Cells, Urine TNTC /hpf (0-5)
[2021-11-27 10:42] LABS: Bacteria Many /hpf; Red Blood Cells, Urine 25-50 /hpf (0-2); Squamous Epithelial Cells Mod /hpf (Few)
== END | disposition home or self-care (01) ==
LOC: LAB SHORT 09:07
PROVIDERS: Family Medicine
DX: N39.0 Urinary tract infection, site not specified (principal)
CPT/HCPCS: 81001; 87077; 87086; 87186

== ENCOUNTER 2022-03-05 03:52 | Observation (INO) | payer OTHER ==
[~2022-03-05] VITALS: Ht 160 cm; Wt 92.8 kg
[~2022-03-05 03:52] MED LIST changes: -ATOR20 PO; +ATOR40TA PO; +THERA-D2000 UNIT PO; -Vitamin D2000 UNIT PO
[2022-03-05 04:49] LABS: Hematocrit 33.3 % (33.0-51.0); Hemoglobin 10.7 g/dL (11.5-16.0); Mean Corpuscular HGB 28.7 pg (26.0-34.0); Mean Corpuscular HGB Conc 32.1 g/dL (31.5-36.5); Mean Corpuscular Volume 89 fL (80-100); Mean Platelet Volume 10.5 fL (9.1-12.4); Platelet Count 352 K/mm3 (150-400); RDW Coefficient Variation 19.1 % (11.7-14.2); RDW Standard Deviation 63.1 fL (35.1-46.3); Red Blood Cell Count 3.73 M/mm3 (3.80-5.20)
[2022-03-05 04:56] LABS: BASOPHILS ABSOLUTE AUTO 0.01 K/mm3 (0.00-0.23); BASOPHILS PERCENT AUTO 2 % (0-2); EOSINOPHILS ABSOLUTE AUTO 0.05 K/mm3 (0.00-0.68); EOSINOPHILS PERCENT AUTO 9 % (0-6); IMMATURE GRAN ABSOLUTE AUTO 0.01 K/mm3 (0.00-0.10); IMMATURE GRAN PERCENT AUTO 2 % (0-1); LYMPHOCYTES ABSOLUTE AUTO 0.44 K/mm3 (0.84-5.20); LYMPHOCYTES PERCENT AUTO 75 % (21-46); MONOCYTES ABSOLUTE AUTO 0.02 K/mm3 (0.16-1.47); MONOCYTES PERCENT AUTO 3 % (4-13); NEUTROPHILS ABSOLUTE AUTO 0.06 K/mm3 (1.96-9.15); NEUTROPHILS PERCENT AUTO 10 % (41-73)
[2022-03-05 04:57] LABS: White Blood Cell Count 0.59 K/mm3 (4.00-11.30)
[2022-03-05 05:16] LABS: Albumin/Globulin Ratio 0.7 (0.8-1.8); Bilirubin, Total 0.6 mg/dL (0.1-1.0); Bun/Creatinine Ratio 20.1 (12.0-20.0); Calcium, Blood 9.2 mg/dL (8.5-10.1); Creatinine, Blood 0.85 mg/dL (0.40-1.00); Globulin, Blood 4.5 g/dL (2.2-4.0); Potassium, Blood 3.7 mmol/L (3.5-5.5); Thyroid Stimulating Hormone 2.1 uIU/mL (0.360-4.800); Total Protein, Blood 7.5 g/dL (6.4-8.2)
[2022-03-05 05:30] LABS: Calcium, Ionized (POC) 1.15 mmol/L (1.10-1.46); Chloride (POC) 110 mmol/L (98-108); Creatinine (POC) 0.8 mg/dL (0.6-1.0); Glucose (ISTAT POC) 172 mg/dL (70-99); Hemoglobin (POC) 10.9 g/dL (12.0-16.0); Potassium (POC) 3.7 mmol/L (3.5-5.5); Sodium (POC) 139 mmol/L (135-148); Total CO2 (POC) 23 mmol/L (21-32)
[2022-03-05 08:05] LABS: CPK Creatine Kinase 75 U/L (26-193)
--- NOTE | 2022-03-05 11:26 | NUR ---
Initial palliative care consult Katharine is a 71 year old with a history of HTN and metastatic breast cancer that was diagnosed in the spring. She was admitted yesterday with new onset a-fib and dehydration. She was cardioverted in the ER and is currently in SR. She is a patient of [facility] , she is visited by a nurse every other Saturday. She sees Dr. Carrero for oncology, she has a follow up appointment with that office this coming . She requested that this repairer typewriter contact Dr. Teran's office to let him know she been hospitalized. Spoke with Alannah at the cancer center and she will let the provider know. Katharine lives alone. She has two walkers if she needs them and a couple steps to get into her home. Her son Damon, lives just down the street. She reports that Damon is helpful and takes her to appointments, shops for groceries, prepares meals and checks on her frequently. She has two other grown children in the [place] area. She also has an ex sister in law, Fer, who lives in [place] who she is close to. Katharine reports she was diagnosed in spring with metastatic breast cancer. She states that she knows her cancer is not curable, however she states that she is not ready to yet. She has done radiation treatments and PO chemo in the past and now currently just finished her second round of chemo 4 days ago. She reports that the fatigue and diarrhea have been really bad this round and states that she can't continue on if this is how she will feel after chemo. Encouraged her to talk with oncologist about goals and options for treatment. She reports fatigue and diarrhea being the most bothersome symptoms. She states she is cold all the time. Offered warm blankets and to increase the room temp. She denies pain, nausea or neuropathy at this time. Briefly discussed code status and options. Pt is tearful during the discussion. She states she is afraid. When asked about what she is afraid of she states "I don't know." She appears to have some spiritual pain and is struggling with why she has to go through this disease. She has good family support. Offered to have the electrical inspector come to speak with her and she was very agreeable to this. Spoke with Chaplain Crum who will come talk with her. Encouraged her to voice her needs so that staff can help address them. PC to continue to follow for symptom managment, goals of care and advanced care planning.
[2022-03-05] MEDS ORDERED: LIDO700A20 TOP ×2 (12:00)
[2022-03-05] MEDS ORDERED: DYAZIDE 37.5-21 EACH PO ×2 (12:11)
--- NOTE | 2022-03-05 13:02 | NUR ---
Alban is lying in bed and alert. She immediately explains about her cancer and her a-fib episode. She is very tearful when talking about and dying. We discuss risks vs. bemefits for remaining full code status and the continuance chemotherapy treatments. Pt states to me that she wants so remain full code and to continue chemo. She will have some new conversations with DR. Carrero regarding her treatment. These decsions seam to resonate with pt a create a level of peace for her. We also discussed her theological questions and I added value on this subject with fresh insights. We explored her spiritual beliefs and developed a spiritual care plan for after d/c. I provide prayer at the conclusion of our conversation which brought out much emotion and verbalization of gratitude for the visit. Pt appears to have expereinced catharsis and gained clear focus on how she would like to move forward medically. I will continue to remain available to pt and family.
--- NOTE | 2022-03-05 13:56 | NUR ---
ABD US PT NEEDS TO BE NPO & HAD LUNCH. LIMITED STAFF SO US WILL BE DONE TOMORROW AM. DR VENTURA MADE AWARE.
--- NOTE | 2022-03-05 14:00 | NUR ---
MIDDAY NOTE SINCE ARRIVAL TO UNIT, PT HAS HAD 3 LOOSE BM's BUT HAS STARTED TO SLOW. TOLERATED LUNCH w/ NO N/V. PALLIATIVE & SPIRITUAL CARE INTO SEE PT. AT THIS TIME, PT REPORTS FEELING MUCH BETTER THAN THIS AM. HR CONTINUES TO BE NSR.
[2022-03-05 16:30] LABS: CPK Creatine Kinase 44 U/L (26-193)
--- NOTE | 2022-03-05 17:03 | NUR ---
SHIFT SUMMARY PATIENT ALERT AND ORIENTED. SBA TO GET UP. OCC NAUSEA AND ABD CRAMPS. FREQUENT INCONTINENT DIARRHEA IN ATTENDS WITH PRN CHANGES. IV FLUID AND POTASSIUM RUNNING. TOLERATING CARDIAC DIET. SR IN 80S ON TELE. TROPONIN OF 137 AT 1600. ASSUMED CARE OF PATIENT AT 1400.
[2022-03-05 23:07] LABS: Adenovirus F 40/41 Not Detected (NOT DETECT); Astrovirus Not Detected (NOT DETECT); Campylobacter Sp Not Detected (NOT DETECT); Cryptosporidium Not Detected (NOT DETECT); Cyclospora Cayetanensis Not Detected (NOT DETECT); E. Coli O157 Not Detected (NOT DETECT); Entamoeba Histolytica Not Detected (NOT DETECT); Enteroaggregative E. coli-EAEC Not Detected (NOT DETECT); Enteropathogenic E. coli-EPEC Not Detected (NOT DETECT); Enterotoxigenic E. coli-ETEC Not Detected (NOT DETECT); Giardia Lamblia Not Detected (NOT DETECT); Norovirus GI/GII Not Detected (NOT DETECT); Plesiomonas Shigelloides Not Detected (NOT DETECT); Rotavirus A Not Detected (NOT DETECT); Salmonella Sp Not Detected (NOT DETECT); Sapovirus Not Detected (NOT DETECT); Shiga Toxin-prod E. coli-STEC Not Detected (NOT DETECT); Shigella/Enteroin E. coli-EIEC Not Detected (NOT DETECT); Vibrio Cholerae Not Detected (NOT DETECT); Vibrio Sp Not Detected (NOT DETECT); Yersinia Enterocolitica Not Detected (NOT DETECT)
[2022-03-06 05:03] LABS: Hemoglobin 8.8 g/dL (11.5-16.0); Mean Corpuscular HGB 28.8 pg (26.0-34.0); Mean Corpuscular HGB Conc 31.4 g/dL (31.5-36.5); Mean Corpuscular Volume 92 fL (80-100); Mean Platelet Volume 9.9 fL (9.1-12.4); Platelet Count 217 K/mm3 (150-400); RDW Coefficient Variation 19.3 % (11.7-14.2); RDW Standard Deviation 64.9 fL (35.1-46.3); Red Blood Cell Count 3.06 M/mm3 (3.80-5.20)
[2022-03-06 05:20] LABS: Albumin, Blood 2.5 g/dL (3.4-5.0); Albumin/Globulin Ratio 0.6 (0.8-1.8); Bilirubin, Total 0.4 mg/dL (0.1-1.0); Bun/Creatinine Ratio 30.9 (12.0-20.0); Calcium, Blood 8.8 mg/dL (8.5-10.1); Creatinine, Blood 0.55 mg/dL (0.40-1.00); Globulin, Blood 4.3 g/dL (2.2-4.0); Potassium, Blood 3.9 mmol/L (3.5-5.5); Total Protein, Blood 6.8 g/dL (6.4-8.2)
[2022-03-06 05:47] LABS: White Blood Cell Count 0.26 K/mm3 (4.00-11.30)
--- NOTE | 2022-03-06 06:01 | NUR ---
SHIFT SUMMARY PT ALERT AND ORIENTED X4. AFBERILE. BP STABLE. HR SR 80-90'S. ON RA SATS OVER 95%. SOME NAUSEA THROUGHOUT THE EVENING, MEDICATED PER EMAR. PT HAD FREQUENT, LOOSE LIQUIDY BROWN STOOLS THROUGHOUT THE NIGHT. C.DIFF NEGATIVE. BREAKDOWN OF SKIN IN SERENITY AREA. ATTENDS, POWDER, AND BARRIER CREAM IN PLACE. ASSOCIATED PAIN DUE TO BREAKDOWN OF SKIN, MEDICATED PER EMAR. PT IN BED SLEEPING WITH CALL ALARM AT SIDE, WILL CONTINUE TO MONITOR UNTIL REPORT GIVEN TO DAYSHIFT RN
[2022-03-06 06:14] LABS: BASOPHILS ABSOLUTE MAN 0.01 K/mm3 (0.00-0.23); BASOPHILS PERCENT MAN 4 % (0-2); EOSINOPHILS ABSOLUTE MAN 0.06 K/mm3 (0.00-0.68); EOSINOPHILS PERCENT MAN 24 % (0-6); LYMPHOCYTES ABSOLUTE MAN 0.13 K/mm3 (0.84-5.20); LYMPHOCYTES PERCENT MAN 52 % (21-46); MONOCYTES ABSOLUTE MAN 0.02 K/mm3 (0.16-1.47); MONOCYTES PERCENT MAN 8 % (4-13); NEUTROPHILS ABSOLUTE MAN 0.03 K/mm3 (1.96-9.15); SEG NEUTROPHILS PERCENT MAN 12 % (41-73); TOTAL CELLS COUNTED 25
--- NOTE | 2022-03-06 07:54 | NUR ---
Normal sinus rhythm per telemetry monitoring. Vital signs stable. She is having some nausea and abdominal cramping. Given zofran for the nausea, which she states she takes orally at home. Pt still having persistent diarrhea, incontinently. However, she states that she feels that it is manageable at home. Given loperamide at this time for diarrhea. She is tearful, states that the chemo is hard and she realizes that her cancer is treatable but not curable. She says that she wants to live as long as she can to spend time with her three kids. One son lives just down the road from her. She says that they are helpful and supportive of her. She says that the orthotic technician visit yesterday with Radames was appreciated. She says that she thinks she is okay today, and hopes to go home today.
--- NOTE | 2022-03-06 13:21 | NUR ---
Spiritual care visit conducted. Pt tells me about the peace she feels about the direction she has chosen regarding full code status and continuing with her oncologist. She tells me about the heart to heart talk she had with her son the prior night and the tremendous support she feels from her family in these challenging times. We talk her del more in depth and about what is meaningful for her with her prayers. 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 We discuss some of the nuances of her symptoms from the cancer and side effects from the chemotherapy and the way that she and her family have found to navigate through them. I provide therapeutic listening, anxiety containment, gentle ip counsel and prayer. Pt is teraful when she says, "the prayer means so much to me. She shows signs of increased resolve and reduced stress.
[2022-03-06] MEDS ORDERED: LOPE2C PO ×2 (14:27)
[2022-03-07] MEDS ORDERED: DICY20 PO (00:29)
[2022-03-28] MEDS ORDERED: DIPATR PO (13:02)
== END 2022-03-06 17:00 | disposition home or self-care (01) ==
LOC: ER 03:52 → PCU 03:53
PROVIDERS: Emergency Medicine; ADMIT Internal Medicine
DX: I48.91 Unspecified atrial fibrillation (principal); C50.919 Malignant neoplasm of unspecified site of unspecified female breast; C78.00 Secondary malignant neoplasm of unspecified lung; C78.7 Secondary malignant neoplasm of liver and intrahepatic bile duct; C79.51 Secondary malignant neoplasm of bone; K52.1 Toxic gastroenteritis and colitis; T45.1X5A Adverse effect of antineoplastic and immunosuppressive drugs, initial encounter; D70.9 Neutropenia, unspecified; R79.89 Other specified abnormal findings of blood chemistry; I10 Essential (primary) hypertension; E11.9 Type 2 diabetes mellitus without complications; D64.9 Anemia, unspecified; K80.20 Calculus of gallbladder without cholecystitis without obstruction; Z79.84 Long term (current) use of oral hypoglycemic drugs; Z92.21 Personal history of antineoplastic chemotherapy; Z88.1 Allergy status to other antibiotic agents
CPT/HCPCS: 36415; 71045; 71260; 76705; 80047; 80053; 82550; 82947; 83735; 83880; 84443; 84484; 85014; 85025; 87507; 92960; 93005; 93010; 93306; 96372; 96374-59; 96375; 96376; 96376-59; 99152; 99291-25; A9270; G0378; J1650; J1815; J2405; J2704; J3480; J7030; Q5110; Q9967

== ENCOUNTER 2022-03-06 21:19 | Emergency (ER) | payer OTHER ==
[~2022-03-06] VITALS: Ht 180.3 cm; Wt 108.9 kg
[~2022-03-06 21:19] MED LIST changes: +LIDO700A20 TOP; +LOPE2C PO
[2022-03-07 00:10] LABS: Hematocrit 32.6 % (33.0-51.0); Hemoglobin 10.1 g/dL (11.5-16.0); Mean Corpuscular HGB 28.2 pg (26.0-34.0); Mean Corpuscular Volume 91 fL (80-100); Mean Platelet Volume 10.2 fL (9.1-12.4); Platelet Count 260 K/mm3 (150-400); RDW Standard Deviation 64.2 fL (35.1-46.3); Red Blood Cell Count 3.58 M/mm3 (3.80-5.20)
[2022-03-07 00:13] LABS: BASOPHILS ABSOLUTE AUTO 0.01 K/mm3 (0.00-0.23); BASOPHILS PERCENT AUTO 2 % (0-2); EOSINOPHILS ABSOLUTE AUTO 0.06 K/mm3 (0.00-0.68); EOSINOPHILS PERCENT AUTO 12 % (0-6); IMMATURE GRAN PERCENT AUTO 0 % (0-1); LYMPHOCYTES ABSOLUTE AUTO 0.23 K/mm3 (0.84-5.20); LYMPHOCYTES PERCENT AUTO 45 % (21-46); MONOCYTES ABSOLUTE AUTO 0.03 K/mm3 (0.16-1.47); MONOCYTES PERCENT AUTO 6 % (4-13); NEUTROPHILS ABSOLUTE AUTO 0.18 K/mm3 (1.96-9.15); NEUTROPHILS PERCENT AUTO 35 % (41-73)
[2022-03-07 00:15] LABS: White Blood Cell Count 0.51 K/mm3 (4.00-11.30)
[2022-03-07] MEDS ORDERED: DICY20 PO (00:29)
[2022-03-07 00:30] LABS: Albumin, Blood 2.9 g/dL (3.4-5.0); Albumin/Globulin Ratio 0.6 (0.8-1.8); Bilirubin, Total 0.4 mg/dL (0.1-1.0); Bun/Creatinine Ratio 23.2 (12.0-20.0); Calcium, Blood 9.3 mg/dL (8.5-10.1); Creatinine, Blood 0.78 mg/dL (0.40-1.00); Potassium, Blood 4.2 mmol/L (3.5-5.5); Total Protein, Blood 7.9 g/dL (6.4-8.2)
[2022-03-28] MEDS ORDERED: DIPATR PO (13:02)
== END 2022-03-07 01:18 | disposition home or self-care (01) ==
LOC: ER 21:19
PROVIDERS: Emergency Medicine
DX: R10.84 Generalized abdominal pain (principal); R19.7 Diarrhea, unspecified; C79.81 Secondary malignant neoplasm of breast; I10 Essential (primary) hypertension; E11.9 Type 2 diabetes mellitus without complications; E78.5 Hyperlipidemia, unspecified; I48.91 Unspecified atrial fibrillation; Z88.1 Allergy status to other antibiotic agents; Z79.899 Other long term (current) drug therapy
CPT/HCPCS: J2405; J2270; 80053; 85025; 93005; 93010; 96374; 96375; 99284-25; A9270; J7030

== ENCOUNTER → 2022-04-10 | Outpatient (CLI) | payer OTHER ==
[~2022-04-10] MED LIST changes: +DICY20 PO; +DIPATR PO
[2022-04-10 13:24] LABS: BASOPHILS ABSOLUTE AUTO 0.11 K/mm3 (0.00-0.23); BASOPHILS PERCENT AUTO 1 % (0-2); EOSINOPHILS ABSOLUTE AUTO 0.07 K/mm3 (0.00-0.68); EOSINOPHILS PERCENT AUTO 1 % (0-6); Hematocrit 31.1 % (33.0-51.0); Hemoglobin 9.6 g/dL (11.5-16.0); IMMATURE GRAN ABSOLUTE AUTO 0.22 K/mm3 (0.00-0.10); IMMATURE GRAN PERCENT AUTO 2 % (0-1); LYMPHOCYTES ABSOLUTE AUTO 0.48 K/mm3 (0.84-5.20); LYMPHOCYTES PERCENT AUTO 4 % (21-46); MONOCYTES ABSOLUTE AUTO 0.88 K/mm3 (0.16-1.47); MONOCYTES PERCENT AUTO 7 % (4-13); Mean Corpuscular HGB 28.7 pg (26.0-34.0); Mean Corpuscular HGB Conc 30.9 g/dL (31.5-36.5); Mean Corpuscular Volume 93 fL (80-100); Mean Platelet Volume 10.1 fL (9.1-12.4); NEUTROPHILS ABSOLUTE AUTO 10.24 K/mm3 (1.96-9.15); NEUTROPHILS PERCENT AUTO 85 % (41-73); NRBC ABSOLUTE 0.02 K/mm3 (0.00-0.02); NRBC Auto 0.2 /100 WBC (0.0-0.2); Platelet Count 594 K/mm3 (150-400); RDW Coefficient Variation 21.5 % (11.7-14.2); RDW Standard Deviation 73.1 fL (35.1-46.3); Red Blood Cell Count 3.35 M/mm3 (3.80-5.20)
[2022-04-10 14:14] LABS: Albumin, Blood 2.6 g/dL (3.4-5.0); Albumin/Globulin Ratio 0.6 (0.8-1.8); Bilirubin, Total 0.2 mg/dL (0.1-1.0); Bun/Creatinine Ratio 34.4 (12.0-20.0); Calcium, Blood 8.3 mg/dL (8.5-10.1); Creatinine, Blood 0.7 mg/dL (0.40-1.00); Globulin, Blood 4.4 g/dL (2.2-4.0); Potassium, Blood 4.2 mmol/L (3.5-5.5)
== END | disposition home or self-care (01) ==
LOC: LAB SHORT 13:18 → LAB 13:18
PROVIDERS: Internal Medicine Hematology & Oncology
DX: C50.812 Malignant neoplasm of overlapping sites of left female breast (principal)
CPT/HCPCS: 80053; 85025